=== PATIENT | female | born 1975 | race Caucasian/White ===

== ENCOUNTER 2017-10-21 23:44 | Emergency (ER) | payer OTHER ==
[~2017-10-21] VITALS: Ht 170.2 cm; Wt 65.8 kg
[~2017-10-21 23:44] MED LIST: ALBU90OI; ASPI325 PO; ATEN25; ATEN25 PO; ATEN50; ATEN50 PO; AZIT250 PO; BACL10; BCP'S; CARI350; CARI350 PO; CIPR500 PO; DIAZ5 PO; DIPH50; HYDACE10B PO; HYDACE5 PO; HYDACE5325; IBUP200; IBUP400; IBUP600 PO; IBUP800; IBUP800 PO; METH10; METH10 PO; METHADONE; NORCO; OXYACE5T PO; OXYC10ER PO; OXYC30; OXYC30 PO; OXYC5 PO; PROM25 PO; Percocet 5-3251 EACH PO; RANI150; RXHYDACE PO; ZESTORETIC 20-121 EA
[2017-10-22 00:12] LABS: BASOPHILS ABSOLUTE AUTO 0.04 K/mm3 (0.00-0.23); BASOPHILS PERCENT AUTO 0 % (0-2); EOSINOPHILS ABSOLUTE AUTO 0.03 K/mm3 (0.00-0.68); EOSINOPHILS PERCENT AUTO 0 % (0-6); Hematocrit 38.4 % (33.0-51.0); Hemoglobin 12.6 g/dL (11.5-16.0); IMMATURE GRAN ABSOLUTE AUTO 0.04 K/mm3 (0.00-0.10); IMMATURE GRAN PERCENT AUTO 0 % (0-1); LYMPHOCYTES ABSOLUTE AUTO 0.92 K/mm3 (0.84-5.20); LYMPHOCYTES PERCENT AUTO 9 % (21-46); MONOCYTES ABSOLUTE AUTO 0.51 K/mm3 (0.16-1.47); MONOCYTES PERCENT AUTO 5 % (4-13); Mean Corpuscular HGB 30.7 pg (26.0-34.0); Mean Corpuscular HGB Conc 32.8 g/dL (31.5-36.5); Mean Corpuscular Volume 94 fL (80-100); Mean Platelet Volume 11.1 fL (9.1-12.4); NEUTROPHILS PERCENT AUTO 85 % (41-73); Platelet Count 218 K/mm3 (150-400); RDW Coefficient Variation 12.8 % (11.7-14.2); RDW Standard Deviation 43.8 fL (35.1-46.3); White Blood Cell Count 10.44 K/mm3 (4.00-11.30)
[2017-10-22 00:13] LABS: Bilirubin, Urine Neg (Neg); Blood, Urine Neg (Neg); Glucose Qualitative, Urine Neg (Neg); Ketones, Urine Neg (Neg); Leukocyte Esterase, Urine 1+ (Neg); Nitrite, Urine Neg (Neg); Protein, Urine Neg (Neg); Specific Gravity, Urine 1.025 (1.003-1.022); Urobilinogen, Urine NORM (Normal)
[2017-10-22 00:18] LABS: Appearance, Urine Clear (Clear); Color, Urine Yellow (P-Yellow)
[2017-10-22 00:19] LABS: Bacteria Few /hpf; Red Blood Cells, Urine 0-2 /hpf (0-2); Squamous Epithelial Cells Mod /hpf (Few)
[2017-10-22 00:23] LABS: International Normalized Ratio 0.96; Prothrombin Time Results 9.9 Sec (9.7-11.5)
[2017-10-22 00:24] LABS: U Amphetamine Screen DETECTED; U Barbituate Screen Not Detected; U Benzodiazapine Screen Not Detected; U Buprenorphine Screen DETECTED; U Cannabinoids Screen Not Detected; U Cocaine Screen Not Detected; U Methadone Screen Not Detected; U Methamphetamine Screen Not Detected; U Opiates Screen Not Detected; U Oxycodone Screen Not Detected; U Phencyclidine Screen Not Detected; U Propoxyphene Screen Not Detected
[2017-10-22 00:32] LABS: Alanine Aminotransfer (ALT/SGP 43 U/L (12-78); Albumin, Blood 4.1 g/dL (3.4-5.0); Albumin/Globulin Ratio 1.1 (0.8-1.8); Alk Phos 98 U/L (50-136); Anion Gap 8 mmol/L (6-16); Aspartate Aminotrans (AST/SGOT 42 U/L (12-37); Bilirubin, Total 0.4 mg/dL (0.1-1.0); Blood Urea Nitrogen 19 mg/dL (8-24); CO2, Blood 24 mmol/L (21-32); Calcium, Blood 8.4 mg/dL (8.5-10.1); Chloride, Blood 109 mmol/L (98-108); Creatinine, Blood 0.61 mg/dL (0.40-1.00); Ethanol (Alcohol), Blood, Med 21 mg/dL; Globulin, Blood 3.9 g/dL (2.2-4.0); Glomerular Filtration Rate >60 (60-); Glucose, Blood 83 mg/dL (70-99); Potassium, Blood 3.9 mmol/L (3.5-5.5); Sodium, Blood 141 mmol/L (136-145)
== END 2017-10-22 03:16 | disposition home or self-care (01) ==
LOC: ER 23:44
PROVIDERS: Emergency Medicine
DX: F17.210 Nicotine dependence, cigarettes, uncomplicated (principal); Z88.8 Allergy status to other drugs, medicaments and biological substances; Z79.899 Other long term (current) drug therapy
CPT/HCPCS: 36415; 80053; 81001; 84703; 85025; 85610; 87086; 93005; 93010; G0480; J2060; J7030

== ENCOUNTER 2018-06-11 00:48 | Emergency (ER) | payer OTHER ==
[~2018-06-11] VITALS: Ht 167.6 cm; Wt 56.7 kg
[2018-06-11] MEDS ORDERED: SUBOXONE 4 MG-1 EACH SL (01:13)
[2018-06-11 01:34] LABS: BASOPHILS ABSOLUTE AUTO 0.03 K/mm3 (0.00-0.23); BASOPHILS PERCENT AUTO 0 % (0-2); EOSINOPHILS ABSOLUTE AUTO 0.13 K/mm3 (0.00-0.68); EOSINOPHILS PERCENT AUTO 2 % (0-6); Hematocrit 33.9 % (33.0-51.0); Hemoglobin 10.1 g/dL (11.5-16.0); IMMATURE GRAN ABSOLUTE AUTO 0.01 K/mm3 (0.00-0.10); IMMATURE GRAN PERCENT AUTO 0 % (0-1); LYMPHOCYTES PERCENT AUTO 30 % (21-46); MONOCYTES ABSOLUTE AUTO 0.61 K/mm3 (0.16-1.47); MONOCYTES PERCENT AUTO 8 % (4-13); Mean Corpuscular HGB Conc 29.8 g/dL (31.5-36.5); Mean Corpuscular Volume 81 fL (80-100); Mean Platelet Volume 10.5 fL (9.1-12.4); NEUTROPHILS ABSOLUTE AUTO 4.53 K/mm3 (1.96-9.15); NEUTROPHILS PERCENT AUTO 60 % (41-73); Platelet Count 273 K/mm3 (150-400); RDW Coefficient Variation 17.3 % (11.7-14.2); Red Blood Cell Count 4.21 M/mm3 (3.80-5.20); White Blood Cell Count 7.61 K/mm3 (4.00-11.30)
[2018-06-11 01:47] LABS: Anion Gap 6 mmol/L (6-16); Blood Urea Nitrogen 14 mg/dL (8-24); Bun/Creatinine Ratio 19.9 (12.0-20.0); CO2, Blood 26 mmol/L (21-32); Calcium, Blood 8.1 mg/dL (8.5-10.1); Chloride, Blood 108 mmol/L (98-108); Glomerular Filtration Rate >60 (60-); Glucose, Blood 88 mg/dL (70-99); Potassium, Blood 3.9 mmol/L (3.5-5.5); Sodium, Blood 140 mmol/L (136-145)
[2018-06-11] MEDS ORDERED: Percocet 10-321 EACH PO (02:36)
== END 2018-06-11 03:48 | disposition home or self-care (01) ==
LOC: ER 00:48
PROVIDERS: Emergency Medicine
DX: T23.251A Burn of second degree of right palm, initial encounter (principal); T24.291A Burn of second degree of multiple sites of right lower limb, except ankle and foot, initial encounter; T24.292A Burn of second degree of multiple sites of left lower limb, except ankle and foot, initial encounter; T25.212A Burn of second degree of left ankle, initial encounter; T25.211A Burn of second degree of right ankle, initial encounter; T31.0 Burns involving less than 10% of body surface; X08.8XXA Exposure to other specified smoke, fire and flames, initial encounter; Z88.8 Allergy status to other drugs, medicaments and biological substances; Z79.899 Other long term (current) drug therapy; F17.210 Nicotine dependence, cigarettes, uncomplicated
CPT/HCPCS: 16025; 80048; 85025; 96361-59; 96374-59; 96375-59; 99284-25; A9270-GY; J1170; J2270; J2405; J7120

== ENCOUNTER 2018-11-30 20:34 | Emergency (ER) | payer OTHER ==
[~2018-11-30] VITALS: Ht 165.1 cm; Wt 56.7 kg
[~2018-11-30 20:34] MED LIST changes: +Percocet 10-321 EACH PO; +SUBOXONE 4 MG-1 EACH SL
[2018-11-30] MEDS ORDERED: Robaxin-750750 MG PO (21:20)
== END 2018-11-30 22:07 | disposition home or self-care (01) ==
LOC: ER 20:34
DX: S42.001A Fracture of unspecified part of right clavicle, initial encounter for closed fracture (principal); M62.838 Other muscle spasm; I10 Essential (primary) hypertension; M41.9 Scoliosis, unspecified; F17.200 Nicotine dependence, unspecified, uncomplicated; Z88.8 Allergy status to other drugs, medicaments and biological substances; Z79.899 Other long term (current) drug therapy; W19.XXXA Unspecified fall, initial encounter
CPT/HCPCS: 73030; 99283-25; A9270; A9270-GY

== ENCOUNTER 2020-01-26 04:38 | Emergency (ER) | payer OTHER ==
[~2020-01-26] VITALS: Ht 165.1 cm; Wt 54.4 kg
[~2020-01-26 04:38] MED LIST changes: +Robaxin-750750 MG PO
[2020-01-26] MEDS ORDERED: SUBOXONE 8 MG-1 EACH (05:11)
[2020-01-26 05:20] LABS: BASOPHILS ABSOLUTE AUTO 0.02 K/mm3 (0.00-0.23); BASOPHILS PERCENT AUTO 0 % (0-2); EOSINOPHILS ABSOLUTE AUTO 0.25 K/mm3 (0.00-0.68); EOSINOPHILS PERCENT AUTO 5 % (0-6); Hematocrit 40.1 % (33.0-51.0); Hemoglobin 12.6 g/dL (11.5-16.0); IMMATURE GRAN ABSOLUTE AUTO 0.01 K/mm3 (0.00-0.10); IMMATURE GRAN PERCENT AUTO 0 % (0-1); LYMPHOCYTES ABSOLUTE AUTO 1.29 K/mm3 (0.84-5.20); LYMPHOCYTES PERCENT AUTO 27 % (21-46); MONOCYTES ABSOLUTE AUTO 0.35 K/mm3 (0.16-1.47); MONOCYTES PERCENT AUTO 7 % (4-13); Mean Corpuscular HGB 28.2 pg (26.0-34.0); Mean Corpuscular HGB Conc 31.4 g/dL (31.5-36.5); Mean Corpuscular Volume 90 fL (80-100); Mean Platelet Volume 10.8 fL (9.1-12.4); NEUTROPHILS ABSOLUTE AUTO 2.91 K/mm3 (1.96-9.15); NEUTROPHILS PERCENT AUTO 60 % (41-73); Platelet Count 232 K/mm3 (150-400); RDW Coefficient Variation 13.5 % (11.7-14.2); RDW Standard Deviation 44.7 fL (35.1-46.3); Red Blood Cell Count 4.47 M/mm3 (3.80-5.20); White Blood Cell Count 4.83 K/mm3 (4.00-11.30)
[2020-01-26 05:35] LABS: Alanine Aminotransfer (ALT/SGP 21 U/L (12-78); Albumin, Blood 3.4 g/dL (3.4-5.0); Albumin/Globulin Ratio 0.9 (0.8-1.8); Alk Phos 95 U/L (50-136); Anion Gap 4 mmol/L (6-16); Aspartate Aminotrans (AST/SGOT 19 U/L (12-37); Bilirubin, Total 0.2 mg/dL (0.1-1.0); Blood Urea Nitrogen 16 mg/dL (8-24); Bun/Creatinine Ratio 24.9 (12.0-20.0); CO2, Blood 30 mmol/L (21-32); Calcium, Blood 8.5 mg/dL (8.5-10.1); Chloride, Blood 107 mmol/L (98-108); Creatinine, Blood 0.64 mg/dL (0.40-1.00); Globulin, Blood 3.6 g/dL (2.2-4.0); Glomerular Filtration Rate >60 (60-); Glucose, Blood 75 mg/dL (70-99); Potassium, Blood 3.7 mmol/L (3.5-5.5); Sodium, Blood 141 mmol/L (136-145); Troponin I <0.015 ng/mL (0.000-0.040)
== END 2020-01-26 06:16 | disposition home or self-care (01) ==
LOC: ER 04:38
PROVIDERS: Emergency Medicine
DX: R07.9 Chest pain, unspecified (principal); R06.02 Shortness of breath; R51.9 Headache, unspecified; R11.0 Nausea; I10 Essential (primary) hypertension; F17.210 Nicotine dependence, cigarettes, uncomplicated; Z88.8 Allergy status to other drugs, medicaments and biological substances; Z79.891 Long term (current) use of opiate analgesic; Z79.899 Other long term (current) drug therapy
CPT/HCPCS: 36415; 80053; 83690; 84484; 85025; 93005; 93010; 96374; 99283-25; J1885; J2270

== ENCOUNTER 2022-10-11 17:10 | Inpatient (IN) | payer OTHER ==
[~2022-10-11] VITALS: Ht 167.6 cm; Wt 54.3 kg
[~2022-10-11 17:10] MED LIST changes: +SUBOXONE 8 MG-1 EACH
[2022-10-11 17:30] LABS: Calcium, Ionized (POC) 1.19 mmol/L (1.10-1.46); Chloride (POC) 108 mmol/L (98-108); Creatinine (POC) 0.8 mg/dL (0.6-1.0); Glucose (ISTAT POC) 90 mg/dL (70-99); Hemoglobin (POC) 9.9 g/dL (12.0-16.0); Potassium (POC) 4.1 mmol/L (3.5-5.5); Sodium (POC) 141 mmol/L (135-148); Total CO2 (POC) 21 mmol/L (21-32)
[2022-10-11 17:31] LABS: BASOPHILS ABSOLUTE AUTO 0.02 K/mm3 (0.00-0.23); BASOPHILS PERCENT AUTO 0 % (0-2); EOSINOPHILS PERCENT AUTO 4 % (0-6); Hematocrit 29.5 % (33.0-51.0); Hemoglobin 9.8 g/dL (11.5-16.0); IMMATURE GRAN ABSOLUTE AUTO 0.01 K/mm3 (0.00-0.10); IMMATURE GRAN PERCENT AUTO 0 % (0-1); LYMPHOCYTES ABSOLUTE AUTO 1.71 K/mm3 (0.84-5.20); LYMPHOCYTES PERCENT AUTO 37 % (21-46); MONOCYTES ABSOLUTE AUTO 0.48 K/mm3 (0.16-1.47); MONOCYTES PERCENT AUTO 10 % (4-13); Mean Corpuscular HGB 29.4 pg (26.0-34.0); Mean Corpuscular HGB Conc 33.2 g/dL (31.5-36.5); Mean Corpuscular Volume 89 fL (80-100); Mean Platelet Volume 10.9 fL (9.1-12.4); NEUTROPHILS ABSOLUTE AUTO 2.19 K/mm3 (1.96-9.15); NEUTROPHILS PERCENT AUTO 48 % (41-73); Platelet Count 224 K/mm3 (150-400); RDW Coefficient Variation 13.2 % (11.7-14.2); Red Blood Cell Count 3.33 M/mm3 (3.80-5.20); White Blood Cell Count 4.61 K/mm3 (4.00-11.30)
[2022-10-11 17:44] LABS: International Normalized Ratio 0.99; Prothrombin Time Results 10.4 Sec (9.7-11.5)
[2022-10-11 18:01] LABS: Albumin, Blood 3.1 g/dL (3.4-5.0); Albumin/Globulin Ratio 1.1 (0.8-1.8); Bilirubin, Total 0.2 mg/dL (0.1-1.0); Bun/Creatinine Ratio 30.5 (12.0-20.0); Calcium, Blood 8.2 mg/dL (8.5-10.1); Creatinine, Blood 0.72 mg/dL (0.40-1.00); Globulin, Blood 2.9 g/dL (2.2-4.0); Potassium, Blood 4.2 mmol/L (3.5-5.5)
[2022-10-11 18:35] LABS: U Amphetamine Screen DETECTED; U Barbituate Screen Not Detected; U Benzodiazapine Screen Not Detected; U Buprenorphine Screen DETECTED; U Cannabinoids Screen Not Detected; U Cocaine Screen Not Detected; U Methadone Screen Not Detected; U Methamphetamine Screen DETECTED; U Opiates Screen DETECTED; U Oxycodone Screen Not Detected; U Phencyclidine Screen Not Detected; U Propoxyphene Screen Not Detected
[2022-10-11 21:23] VITALS: BP 137/97
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
[2022-10-12] VITALS (18 sets, daily range): BP systolic 97–136; BP diastolic 65–99
[2022-10-12 05:15] LABS: Hematocrit 27.4 % (33.0-51.0); Hemoglobin 8.9 g/dL (11.5-16.0); Mean Corpuscular HGB Conc 32.5 g/dL (31.5-36.5); Mean Corpuscular Volume 89 fL (80-100); Platelet Count 215 K/mm3 (150-400); RDW Coefficient Variation 13.2 % (11.7-14.2); RDW Standard Deviation 42.9 fL (35.1-46.3); Red Blood Cell Count 3.07 M/mm3 (3.80-5.20); White Blood Cell Count 6.71 K/mm3 (4.00-11.30)
--- NOTE | 2022-10-12 05:23 | NUR ---
SHIFT SUMMARY VSS. CIRCULATION AND SENSATION REMAIN INTACT IN LLE. CAP REFILL REMAINS <3 SECONDS AND PT CAN MOVE TOES ON COMMAND. PT SLEPT ON AND OFF T/O THE NIGHT. WHEN PT WAS AWAKE PAIN WAS DIFFICULT TO MANAGE, PT WOULD BECOME DISTRAUGHT AND BEGIN TO PANIC. DIFFICULT TO REDIRECT BUT OVERALL COOPERATIVE WITH CARE. HAS BEEN NPO SINCE 0000. SANDERS REMAINS IN PLACE, CLEAR YELLOW OUTPUT. LLE REMAINED ELEVATED T/O THE NIGHT. ICE THERAPY UTILIZED. MEDICATED FOR PAIN WITH PRN'S. PLAN FOR PT TO GO TO SURGERY TODAY. IGNITION SOURCE NOTED, 2 VAPE PENS LOCKED IN DRAWER.
--- NOTE | 2022-10-12 14:00 | NUR ---
Into sds via bed. Pt reports 8/10 left leg pain-last pain meds @ 1230-see emar.History, Chart, Medications and Allergies reviewed before start of procedure.Patient confirms NPO status and agrees with scheduled surgery. Lungs clear T/O to Auscultation.
--- NOTE | 2022-10-12 14:05 | NUR ---
# 18 field start iv to left ac-flushes well and dressing c/d/i.
--- NOTE | 2022-10-12 16:37 | NUR ---
SHIFT SUMMARY PATIENT IS ALERT AND ORIENTED BUT DROWSY. VITAL SIGNS REVIEWED. PATIENT HAS COMPLAINED OF PAIN AND MEDICATED PER EMAR. PATIENT HAD CONT. BIOX PLACED. NO EVENTS NOTATED. PATIENTS DAUGHTER WITH PATIENT WHEN PATIENT WENT INTO SURGERY APPROX 1430. PATIENT HAS NOT COMPLAINED OF SOB, NAUSEA, VOMITTING THIS SHIFT. AWAITING PATIENT FROM SURGERY. WILL CONTINUE TO MONITOR.
--- NOTE | 2022-10-12 18:56 | NUR ---
NURSE NOTE PATIENT ARRIVED BACK TO ROOM. PATIENT PUT BACK ON CONT BIOX. INCOMING NURSE UPDATED ON SURGERY.
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
[2022-10-13 02:04] VITALS: BP 101/80
[2022-10-13 02:44] VITALS: BP 94/72
--- NOTE | 2022-10-13 02:47 | NUR ---
VISITOR BELONGINGS WHEN CLEANING THIS PATIENTS ROOM, A LARGE 64 OUNCE CUP WAS FOUND TO BE FULL OF BEER. THE CUP WAS EMPTIED AND DISCARDED, VP TRANSPORTATION NOTIFIED, CHARGE NURSE NOTIFIED. PLAN TO EDUCATE VISITOR ABOUT FACILITY POLICIES WHEN THE NEXT VISIT
--- NOTE | 2022-10-13 04:03 | NUR ---
SHIFT SUMMARY SEE PREVIOUS NOTE FOR UPDATE ON VISITORS AND BELONGINGS. VSS. SENSATION REMAINS INTACT, CAP REFILL NOTED TO BE SLIGHTLY SLOW, 4 SECONDS. BUT LLE REMAINS PINK. DRESSING REMAINS C/D/I. PT SLEPT THROUGH THE ENTIRE NIGHT. MEDICATED TWICE FOR PAIN WITH GOOD RESULTS. PT TOLLERATING MINIMAL PO INTAKE W/O N/V, IV FLUIDS RUNNING FOR HYDRATION. SANDERS REMAINS IN PLACE, CLEAR YELLOW URINE. NO ACUTE EVENTS RELATED TO PATIENT STATUS T/O THE NIGHT. PLAN FOR PT TO HAVE PT/OT EVAL TODAY. 2 VAPE PENS WENT HOME WITH PTS DAUGHTER. NO IGNITION SOURCE IDENTIFIED AT THIS TIME.
[2022-10-13 07:07] VITALS: BP 100/71
[2022-10-13] MEDS ORDERED: HYDR1TAB94 PO (10:00)
--- NOTE | 2022-10-13 10:53 | NUR ---
DISCHARGE NOTE: PATIENT WAS EDUCATED ON DISCHARGE INSTRUCTIONS. SHE VERBALIZED UNDERSTANDING OF DISCHARGE INSTRUCTIONS. HARD PERSCRIPTION WAS PLACED IN DISCHARGE PACKET. IV WAS TAKEN OUT AND WNL. HER LEFT LEG HAS ACEWRAP THAT IS C/D/I. PATIENT DENIES NUMBNESS OR TINGLING IN ALL EXTREMITIES. CAN MOVE ALL FINGERS AND TOES. SHE IS TOLERATING PO INTAKE. SHE IS A SBA WITH FWW AND GAIT BELT. PATIENT IS AWAITING FOR RIDE TO COME AND PICK HER UP TO TAKE HER HOME.
--- NOTE | 2022-10-13 12:28 | NUR ---
PATIENT WAS DRESSED IN PAPER SCRUBS AND IS BEING TAKING OUT IN A WHEELCHAIR TO HER EX WHO IS TAKING HER HOME. PATIENT HAS ALL PERSONAL ITEMS IN THE ROOM GATHERED AND HAS HER DISCAHRGE INSTRUCTIONS WITH HARD PERSCIRIPTION WITH HER. PATIENTS IN ROOM WALKER WAS ALSO DISCHARGED WITH HER PER NAZIA LIIVNGSTON REQUEST.
== END 2022-10-13 12:26 | disposition home or self-care (01) | DRG 493 ==
LOC: ER 17:10 → SURS 20:37
PROVIDERS: Emergency Medicine; Nurse Practitioner Acute Care; Orthopaedic Surgery; ADMIT Internal Medicine
PROC: 0QSH06Z Reposition Left Tibia with Intramedullary Internal Fixation Device, Open Approach (ICD-10-PCS; principal; 2022-10-12 15:00)
DX: S82.192B Other fracture of upper end of left tibia, initial encounter for open fracture type I or II (principal); D62 Acute posthemorrhagic anemia; W34.00XA Accidental discharge from unspecified firearms or gun, initial encounter; J45.909 Unspecified asthma, uncomplicated; F15.10 Other stimulant abuse, uncomplicated; F11.10 Opioid abuse, uncomplicated; M41.9 Scoliosis, unspecified; F17.210 Nicotine dependence, cigarettes, uncomplicated; Z98.890 Other specified postprocedural states; Z98.51 Tubal ligation status; Z59.00 Homelessness unspecified; Z88.8 Allergy status to other drugs, medicaments and biological substances
CPT/HCPCS: 36415; 51702; 73560-LT; 73590; 73706; 80047; 80053; 85014; 85025; 85027; 85610; 93005; 93010; 94762; 96365-59; 96375-59; 96376-59; 97162; 97530; 99285-25; A9270; G0480; J0171; J0690; J1100; J1170; J1885; J2371; J2405; J2704; J3010; J7030; J7120; Q9967